=== PATIENT | male | born 1985 | race Caucasian/White ===

== ENCOUNTER 2021-02-22 10:20 | Inpatient (IN) ==
[2021-02-22] MEDS ORDERED: Acetaminophen 325 MG TABLET PO PRN (13:23)
[2021-02-22] MEDS ORDERED: Ondansetron 4 MG/2 ML VIAL IVP PRN (13:23)
[2021-02-22] MEDS ORDERED: Naloxone 0.4 MG/ML INJ IVP PRN (13:23)
[2021-02-22] MEDS ORDERED: *HR* LORazepam 2 MG/ML VIAL IVP PRN (13:46)
[2021-02-22 14:12] LABS: Basophils % 0.2 %; Eosinophils % 0.3 %; Immature Granulocytes % 0.5 % (0-4); Segmented Neutrophils % 67.7 %
[2021-02-22 14:14] LABS: Hematocrit 38.6 % (37.5-50.1); Immature Platelets 7.9 % (1.1-6.1); Lymphocytes # 1.1 K/mcL (0.6-4.6); Lymphocytes % 18.5 %; Mean Corpuscular HGB Conc 33.7 g/dL (31.6-35.5); Mean Corpuscular Hemoglobin 31.5 pg (28.0-33.3); Mean Corpuscular Volume 93.5 fL (83.0-100.0); Mean Platelet Volume 11.2 fL (9.4-12.4); Monocytes # 0.7 K/mcL (0.0-1.3); Monocytes % 12.8 %; Neutrophils # 3.9 K/mcL (1.6-8.9); Platelet Count 100 K/mcL (140-400); Red Blood Count 4.13 M/mcL (4.19-5.50); Red Cell Distribution Width 12.1 % (11.5-14.5); White Blood Count 5.7 K/mcL (4.3-11.1)
[2021-02-22 14:19] LABS: INR 1.2; Prothrombin Time 13.9 Seconds (9.4-12.1)
[2021-02-22 14:22] LABS: Activated Partial Thrombo Time 26.6 Seconds (26.0-36.0)
[2021-02-22 14:32] LABS: Alanine Aminotransferase 104 Units/L (7-52); Albumin 3.6 g/dL (3.5-5.7); Albumin/Globulin Ratio 1.3 (1.1-2.2); Alkaline Phosphatase 69 Units/L (34-104); Aspartate Amino Transferase 60 Units/L (13-39); BUN/Creatinine Ratio 12 (6-26); Bilirubin,Total 0.6 mg/dL (0.3-1.0); Blood Urea Nitrogen 12 mg/dL (6-20); Calcium 8.5 mg/dL (8.6-10.3); Carbon Dioxide 27 mEq/L (23-29); Chloride 103 mEq/L (98-107); Globulin 2.8 g/dL (2.4-3.5); Glucose 101 mg/dL (70-105); Magnesium 1.8 mg/dL (1.6-2.6); Osmolality,Calculated 282 (280-300); Phosphorous 3.8 mg/dL (2.7-4.5); Sodium 136 mEq/L (136-145); Total Protein 6.4 g/dL (6.4-8.9); eGFR For African Americans > 60 (> 60); eGFR For Non-African Americans > 60 (> 60)
[2021-02-22 14:43] LABS: Troponin I 0.95 ng/mL (< 0.04)
[2021-02-22] MEDS: Ringers Solution, Lactated 1,000 ML IVC SCH (14:54)
[2021-02-22] MEDS: Ampicillin/Sulbactam 1,500 MG in 0.9 % Sodium Chloride Mini Bag 100 ML IVPB SCH ×2 (14:56→19:25)
[2021-02-22] MEDS: *HR* Heparin 5,000 UNIT/ML VIAL SQ SCH (19:24)
[2021-02-23] MEDS: Ringers Solution, Lactated 1,000 ML IVC SCH (00:02)
[2021-02-23] MEDS: Ampicillin/Sulbactam 1,500 MG in 0.9 % Sodium Chloride Mini Bag 100 ML IVPB SCH ×4 (00:08→17:51)
[2021-02-23 02:52] LABS: Troponin I 0.52 ng/mL (< 0.04)
[2021-02-23] MEDS: *HR* Heparin 5,000 UNIT/ML VIAL SQ SCH ×2 (06:44→17:51)
[2021-02-23] MEDS: Aspirin Enteric Coated 81 MG Tablet PO SCH (09:45)
[2021-02-24] MEDS: Ampicillin/Sulbactam 1,500 MG in 0.9 % Sodium Chloride Mini Bag 100 ML IVPB SCH ×3 (00:50→12:19)
[2021-02-24 04:51] LABS: BUN/Creatinine Ratio 14 (6-26); Blood Urea Nitrogen 12 mg/dL (6-20); Calcium 8.7 mg/dL (8.6-10.3); Carbon Dioxide 28 mEq/L (23-29); Chloride 107 mEq/L (98-107); Chol/HDL Ratio 5.1 (0-4.9); Cholesterol 107 mg/dL (< 200); Glucose 108 mg/dL (70-105); HDL Cholesterol 21 mg/dL (40-59); LDL Cholesterol,Calculated 63 mg/dL (< 100); Magnesium 1.7 mg/dL (1.6-2.6); Osmolality,Calculated 288 (280-300); Phosphorous 3.6 mg/dL (2.7-4.5); Potassium 3.8 mEq/L (3.5-5.1); Sodium 139 mEq/L (136-145); Triglycerides 115 mg/dL (< 150); eGFR For African Americans > 60 (> 60); eGFR For Non-African Americans > 60 (> 60)
[2021-02-24] MEDS: *HR* Heparin 5,000 UNIT/ML VIAL SQ SCH (06:29)
[2021-02-24] MEDS: Aspirin Enteric Coated 81 MG Tablet PO SCH (08:21)
[2021-02-24] MEDS ORDERED: *HR* Labetalol 20 MG/4 ML SYRINGE IVP PRN (11:47)
[2021-02-24] MEDS ORDERED: Perflutren Lipid Microsphere 1.3 ML in 0.9 % Sodium Chloride 8.7 ML IVP PRN (13:53)
[2021-02-25 07:59] VITALS: O2SAT 98
[2021-02-25 10:54] VITALS: BP 120/65; PULSE 53; TEMP 98.7
== END 2021-02-25 14:55 | disposition home or self-care (01) | DRG 45 ==
LOC: 2NENU → SUATTDRO 12:51
PROVIDERS: ADMIT Internal Medicine; ATTEND Internal Medicine